=== PATIENT | male | born 1955 | race Caucasian/White ===

== ENCOUNTER 2023-08-18 04:59 | Inpatient (IN) | payer MEDICARE, SELFPAY ==
[2023-08-14 10:59] VITALS: BMI 28.2
[2023-08-14 11:48] LABS: Urine Albumin Negative (Neg - Trace); Urine Bilirubin Negative (Negative); Urine Character Clear (Clear); Urine Color Yellow; Urine Glucose Negative (Negative); Urine Ketone Negative (Negative); Urine Leukocyte Negative (Negative); Urine Nitrite Negative (Negative); Urine Occult Blood Negative (Negative); Urine Urobilinogen Negative (Neg - 1+)
[2023-08-14 11:51] LABS: % Basophils 0.6 % (0-2); % Eosinophils 7.3 % (0-6); % Immature Granulocytes 0.2 % (0-0.5); % Lymphocytes 38.6 % (20.5-51.1); % Monocytes 10.6 % (1.7-9.3); % Neutrophils 42.7 % (42.2-75.2); Absolute Eosinophils 0.4 10^3/uL (0-0.7); Absolute Monocytes 0.5 10^3/uL (0.1-0.6); Absolute Neutrophils 2.2 10^3/uL (1.4-6.5); Hematocrit 42.3 % (39.0-52.0); Hemoglobin 14.5 g/dL (13.0-18.0); Mean Corp Hgb Conc. 34.3 g/dL (33.0-37.0); Mean Corpuscular Hgb 31.7 pg (27.0-31.0); Mean Corpuscular Volume 92.6 fL (80.0-94.0); Mean Platelet Volume 10.3 fL (7.4-10.4); Nucleated Red Blood Cells % 0 % (-); Platelet Count 182 10^3/uL (130-400); Red Blood Cell Count 4.57 10^6/uL (4.70-6.10); Red Cell Dist. Width 12.1 % (11.5-14.5); White Blood Cell Count 5.1 10^3/uL (4.8-10.8)
[2023-08-14 11:59] LABS: APTT 29.1 Sec (23.4-35.0)
[2023-08-14 12:01] LABS: ALT (SGPT) 33 U/L (0-50); AST (SGOT) 35 U/L (17-59); Albumin 4.1 g/dl (3.5-5.0); Alkaline Phosphatase 37 U/L (38-126); Blood Urea Nitrogen 21 mg/dl (9-20); Calcium 9.7 mg/dl (8.4-10.2); Carbon Dioxide 26 mmol/L (22-30); Chloride 103 mmol/L (98-107); Direct Bilirubin 0.3 mg/dl (0.0-0.4); Estimated Creatinine Clearance 80 ml/min; Glucose 93 mg/dl (70-99); Potassium 4.4 mmol/L (3.5-5.1); Sodium 137 mmol/L (135-145); Total Bilirubin 0.5 mg/dl (0.2-1.3); Total Protein 6.7 g/dl (6.3-8.2); eGFR > 60.00
--- NOTE | 2023-08-14 13:38 | CM ---
Chart reviewed. Patient is independent of ADLS, lives with his in a 2 STH, 1 YE, 0 DME. Reviewed preoperative and postoperative instructions and restrictions, along with showering guidelines. Gave patient 2 soaps. Patient is agreeable to a
home visit by CT Transitional RN. Plan is for the patient to return home with CT Transitional RN. CM to follow
[2023-08-18] VITALS (17 sets, daily range): BP systolic 65–141; BP diastolic 53–92; BMI 25.8
[2023-08-18] MEDS: LOPRESSOR 25 MG PO (05:20)
[2023-08-18] MEDS: PROTONIX 40 MG PO (05:20)
[2023-08-18] MEDS: BACTROBAN 2% OINTMENT 1 APPLIC NASAL ×2 (05:20→19:41)
[2023-08-18] MEDS: MAGNESIUM OXIDE 500 MG PO (05:20)
--- NOTE | 2023-08-18 05:30 | PTCARENOTE ---
admitted pt into CVICU rm [id number]. pt clipped and prepped for CVOR. washed w/ CHG. pre-op meds given. pre-op education. all questions answered. commissioned defence force officer to CVOR.
--- NOTE | 2023-08-18 06:14 | W.CVOR.SURPR ---
CVOR Surgeon Immed Pre Op
-
I have examined this patient prior to performance of the scheduled procedure.
The patient's condition is unchanged from the time of the dictated/written History and
Physical and the patient is able to undergo the scheduled procedure.
CABG x 4, possible BIMA plus radial
[2023-08-18 07:07] LABS: ACT+ - POC 82 Seconds (82-134)
[2023-08-18 07:12] LABS: B.E. - POC -0.6 mmol/L; Glucose - POC 98 mg/dl (65-99); HCO3 - POC 26 mmol/L (21-29); Hematocrit - POC 41 % PCV (42-52); Hemodilution- POC Yes; Ionized Calcium - POC 1.25 mmol/L (1.12-1.27); PCO2 - POC 50 mmHg (35-45); PO2 - POC 413 mmHg (80-100); Potassium - POC 3.8 mmol/L (3.6-5.0); Sodium - POC 143 mmol/L (135-145); pH - POC 7.33 (7.35-7.45)
[2023-08-18 07:30] LABS: Urine Albumin Negative (Neg - Trace); Urine Bilirubin Negative (Negative); Urine Character Clear (Clear); Urine Color Yellow; Urine Glucose Negative (Negative); Urine Ketone Negative (Negative); Urine Leukocyte Trace (Negative); Urine Nitrite Negative (Negative); Urine Occult Blood 4+ (Negative); Urine Urobilinogen Negative (Neg - 1+)
[2023-08-18 08:21] LABS: Urine Mucus Few
[2023-08-18 08:23] LABS: Urine Amorphous Seen; Urine Squamous Cell 16-20 /LPF (Few)
[2023-08-18 08:25] LABS: Urine White Cell 0-2 /HPF (0-5)
[2023-08-18 08:27] LABS: Urine Red Blood Cell 16-20 /HPF (0-2)
[2023-08-18 09:34] LABS: B.E. - POC 1.5 mmol/L; Glucose - POC 109 mg/dl (65-99); HCO3 - POC 26 mmol/L (21-29); Hematocrit - POC 34 % PCV (42-52); Hemodilution- POC Yes; Hemoglobin Calculated - POC 11.5; Ionized Calcium - POC 0.98 mmol/L (1.12-1.27); O2 Saturation %Calculated-POC 99.8 5 (92-96); PCO2 - POC 42 mmHg (35-45); PO2 - POC 248 mmHg (80-100); Potassium - POC 5.1 mmol/L (3.6-5.0); Sodium - POC 137 mmol/L (135-145); pH - POC 7.41 (7.35-7.45)
[2023-08-18 10:05] LABS: Glucose - POC 139 mg/dl (65-99); HCO3 - POC 25 mmol/L (21-29); Hematocrit - POC 33 % PCV (42-52); Hemodilution- POC Yes; Hemoglobin Calculated - POC 11.2; Ionized Calcium - POC 1.03 mmol/L (1.12-1.27); O2 Saturation %Calculated-POC 99.9 5 (92-96); PCO2 - POC 35 mmHg (35-45); PO2 - POC 246 mmHg (80-100); Sodium - POC 137 mmol/L (135-145); pH - POC 7.46 (7.35-7.45)
[2023-08-18 10:33] LABS: B.E. - POC -0.1 mmol/L; Glucose - POC 154 mg/dl (65-99); HCO3 - POC 24 mmol/L (21-29); Hematocrit - POC 35 % PCV (42-52); Hemodilution- POC Yes; Hemoglobin Calculated - POC 11.8; Ionized Calcium - POC 1.04 mmol/L (1.12-1.27); PCO2 - POC 37 mmHg (35-45); PO2 - POC 407 mmHg (80-100); Sodium - POC 138 mmol/L (135-145); pH - POC 7.42 (7.35-7.45)
[2023-08-18 10:44] LABS: ACT+ - POC 964 Seconds (82-134)
[2023-08-18 10:59] LABS: ACT+ - POC > 1003 Seconds (82-134)
[2023-08-18 10:59] LABS: ACT+ - POC > 1003 Seconds (82-134)
[2023-08-18 10:59] LABS: ACT+ - POC > 1003 Seconds (82-134)
[2023-08-18 11:07] LABS: ACT+ - POC 96 Seconds (82-134)
[2023-08-18 11:10] LABS: B.E. - POC -2.4 mmol/L; Glucose - POC 123 mg/dl (65-99); HCO3 - POC 23 mmol/L (21-29); Hematocrit - POC 34 % PCV (42-52); Hemodilution- POC Yes; Hemoglobin Calculated - POC 11.6; Ionized Calcium - POC 1.36 mmol/L (1.12-1.27); O2 Saturation %Calculated-POC 99.2 5 (92-96); PCO2 - POC 40 mmHg (35-45); PO2 - POC 149 mmHg (80-100); Sodium - POC 141 mmol/L (135-145); pH - POC 7.36 (7.35-7.45)
--- NOTE | 2023-08-18 11:54 | W.PN.CT.SURG ---
CT Surgery Operative Note
-
CARDIAC SURGERY OPERATIVE REPORT
Preoperative Diagnosis: Multivessel Coronary Artery Disease with proximal LAD involvement, symptomatic
Postoperative Diagnosis: Same
Procedure(s) Performed:
1. Standard sternotomy with aortic and right atrial cannulation
2. Radial artery harvest, open
3. Coronary artery bypass grafting x 4 (In situ GARCIA to LAD, Ao to radial to OM1 sequential to OM 2, Ao to RSVG to RPDA)
4. Endoscopic vein harvesting of right lower extremity
5. Transesophageal echocardiography
Date of Surgery: 08/18/2023
Comorbidities:
1. History of previous myocardial infarction
2. Multivessel CAD
3. Obstructive sleep apnea
4. History of prostate cancer status post multiple surgeries
5. Hypercholesteremia
6. Hypertension
7. Depression
Attending Surgeon: Randal Dalal MD, MS
Assistants: Gina Mendez PA-C (present and necessary to engineer first assistant, endoscopic vein harvest, retraction, suction, exposure, suture management, and wound closure under my direction), Terrie Sanchez PA-C (Radial artery harvest in an open fashion and
wound closure)
Anesthesiology: Moy Iglesias MD and Shahriar Mccain CRNA
Scrub and Circulating RNs: Kaelyn Dailey RN, Francine Alamo RN
Engineer: Nelly Rojas CCP
Anesthesia: GETA
EBL: per perfusion records
Products: None
CPB Time: 98 minutes
Aortic Cross Clamp Time: 82 minutes
Indication(s) for Procedures: This is a 67-year-old male with multivessel coronary disease who had progressive coronary artery stenosis on his repeat cath. He is also symptomatic in the form of shortness of breath and pressure with exertion. We
discussed the risk and benefits of coronary artery revascularization, he excepted those risk and so we proceeded. Given his young age and lesion pattern, we opted to use multi arterial grafting.
Conduit(s) Quality:
GARCIA -excellent/uniform, good quality and length
RSVG -excellent/uniform with minimal amount of varicosities
Radial�excellent, not thickened, uniform in size, no dissection
Target(s) Quality:
PDA - Good/ heavily calcified at the Crux, good flow
OM1/2 - Good / Good quality and sized vessels, fit a 1.5mm probe easily, good flow
LAD - Average / Heavily calcified with multiple lesions, able to find a soft spot with soft plaque distally
Findings: His left ventricular ejection fraction preoperatively was 60% with no regional wall motion abnormalities. He had a mild amount of aortic valve insufficiency and a mild amount of central mitral insufficiency. Following surgery his EF
remained the same at 60 to 65%, little bit hyperdynamic, but with no new regional wall motion abnormalities. His aortic valve and mitral valve remained the same. The radial artery was harvested in an open fashion and found to have a good sized
lumen, minimal amount of thickness, and no dissection. The GARCIA was harvested in a skeletonized fashion and found to have excellent flow. Following bypass grafting, test dose cardioplegia was given down each distal and confirmed patency and
hemostasis. Each distal was probed both proximally and distally to confirm disease and patency, respectively. Flow probe assessment of all grafts were performed at the end of the procedure, all graft demonstrated good to excellent mean flow and
pulsatility index. He did not require any products, his function was excellent coming off of cardiopulmonary bypass, and did not require any inotropic support. He was placed on a low-dose nitro drip for prophylaxis against radial artery spasm.
Description of Procedure: The patient was taken to the operating room. Their identity and procedure to be performed were verified and they were positioned supine on the operating table. Induction via general anesthesia with endotracheal intubation
was performed and central venous access and arterial monitoring were inserted. A preoperative transesophageal echocardiogram was performed to assess cardiac function and valvular function. The patient was then prepped and draped from chin to feet in
a sterile fashion. A preoperative time-out was performed with all members of the team present. A midline chest incision was performed along with median sternotomy. Simultaneous endoscopic access of the right lower extremity for saphenous vein and
left radial artery harvest was obtained along with administration of an initial 5,000 units of IV heparin. A RulTract sternal retractor was positioned to exposure the left internal mammary bed. The mammary was harvested and found to have good flow.
A medium clip was applied to the distal end of the mammary after dividing it. It was wrapped in a papaverine soaked RayTec and replaced back into the left hemithorax. The RulTract was exchanged for a median sternal retractor. The innominate vein was
isolated. Full heparinization was given (a total of 50,000 units). We created a pericardial well. The aortic cannulation site was chosen where it was soft, pliable, and free of calcium. Prior to cannulation, the left arm is intact and the area was
prepped again in a sterile fashion. Cannulation was performed with an arterial cannula in the ascending aorta and a triple-stage venous cannula through the right atrial appendage. The arterial cannula line had an appropriate bounce and correlating
pressures with test dosing. Next, a root vent/antegrade cannula was inserted into the ascending aorta. The ACT was confirmed to be over 400 and retrograde autologous priming was performed before commencing cardiopulmonary bypass. The pulmonary
artery was away from the aorta to facilitate a clamp site. The aortic cross-clamp was placed after decreasing the flow on the bypass and mean arterial pressure. A total of 1.2L initial dose of antegrade Del-Nido cardioplegia solution was
given and planned for re-dosing every 75 minutes as necessary. There was rapid electro-mechanical arrest of the heart at 300 cc of cardioplegia. The left ventricle was observed for distention on echocardiogram and manual palpation. Cold slush was
placed into a sponge and topically on the RV while we systemically cooled to 34 degrees centigrade.
I positioned the heart to expose the distal right coronary at the posterior descending artery. A [place] blade was used to expose the coronary and perform the arteriotomy. Coronary Reagan scissors were used to enlarge the incision. The saphenous vein
was trimmed and beveled to an appropriate size. The distal anastomosis was performed using 7-0 prolene in an end-to-side fashion. Antegrade cardioplegia was administered into the graft. Appropriate hemostasis and flow were confirmed. The graft was
measured for length to the aorta and cut. A suitable site on the second obtuse marginal was chosen. We dissected and prepared the distal target in a similar fashion. An end-to-side anastomosis was created with a 7-0 prolene to the radial artery.
Antegrade cardioplegia was administered into the graft using an Angiocath. Appropriate hemostasis and flow were confirmed. I then aligned of the graft in order to accommodate a sequential [id number] anastomosis to OM1. This was performed with
8-0 Prolene in a running fashion, test dosing with antegrade with Angiocath with distal occlusion of the radial demonstrated excellent unobstructed flow to the target. The graft was measured for length to the aorta. A suitable target on the distal
left anterior descending was identified. We dissected and prepared the distal target in a similar fashion and found the LAD to be extremely calcified with soft plaque throughout the course of the vessel. We retrieved the GARCIA from the chest and
created a pericardial opening while being cognizant of the phrenic nerve to facilitate the course of the mammary. The distal end of the mammary was prepped and beveled to size. We verified orientation and length of the JERRICA and found brisk flow. An
end-to-side anastomosis was created with a 7-0 prolene. We temporarily released the bulldog clamp on the mammary to inspect flow. Perfusion to the LAD territory was visualized and hemostasis was confirmed. The bull clamp was replaced on the mammary.
The heart was filled and the root was distended with antegrade cardioplegia to make final assessment of graft length and orientation. We created to aortotomies using a #11 blade then a 4.0mm aortic punch. The proximal anastomoses were created in an
end-to-side fashion using 7-0 Prolene for the radial and 6-0 prolene for the vein. At the the same time, we re-warmed to 36.5 degrees centigrade. The bulldog clamp was removed from the mammary. Temporary bipolar ventricular pacing wires were placed
on the base of the right ventricle. The patient was placed in a Trendelenburg position and flows on bypass were lowered. The aortic cross clamp was removed and flows were slowly brought back up. A 30-gauge needle was used to de-air the vein graft.
All bypass grafts were inspected and were free from kinking or twisting. The distal and proximal anastomoses appeared hemostatic. Once transesophageal echocardiography appeared satisfactory for de-airing, the flows were temporarily lowered for root
vent removal. After verifying acceptable parameters, we initiated weaning from cardiopulmonary bypass. Once we were off cardiopulmonary bypass, the venous cannula was clamped and removed. A test dose of protamine was administered and the patient was
monitored for any adverse reaction before resuming protamine. Once half of the protamine dose was delivered, pump suckers were turned off and the systolic blood pressure was lowered for aortic decannulation. The aortic cannula was removed and
pursestrings were tied down. All cannulation sites were oversewn with a 4-0 prolene. I noticed that there was some oozing from the subxiphoid area where the pacing wire had been placed through the skin on the underside. This was clipped with large
clips and then packed with hemostatic agent with good effect. The mammary bed was inspected and hemostasis was confirmed. Once the mediastinum was hemostatic, 19Fr Sean drain was placed in the left pleural cavity and two 24Fr Sean drains were
placed within the pericardium. The sternum was approximated with 4 #7 single and 3 #8 double stainless steel wires. Fascia was approximated with #1 vicryl suture. The subcutaneous, dermis and epidermis were closed in layers in a running fashion. The
skin wound was cleansed and dressed.
All instrument, sponge, and needle counts were confirmed to be correct x 2 at the end of the operation. The patient was transferred to the cardiac intensive care unit in critical but stable condition.
I, Dr. Randal Dalal, was present, scrubbed for, and performed all critical elements of this procedure.
Randal Dalal MD, MS
Cardiothoracic Surgeon
[facility]
This operative dictation was created using the [employer] dictation system. Please excuse any grammatical, typographical, or 'sound alike' errors
--- NOTE | 2023-08-18 12:01 | CM ---
Chart reviewed. Patient is in the OR today. Patient is independent of ADLS, lives with his in a 2 STH, 1 YE, 0 DME. Plan is for the patient to return home with CT Transitional RN. CM to follow
[2023-08-18 12:33] LABS: Glucose - Point of Care 117 mg/dl (70-99)
[2023-08-18 12:40] LABS: Hematocrit 30.6 % (39.0-52.0); Hemoglobin 10.4 g/dL (13.0-18.0); Platelet Count 113 10^3/uL (130-400)
--- NOTE | 2023-08-18 12:40 | PTCARENOTE ---
Assumed care of patient from CVOR, Intubated with # 8.0 ETT at 23 cm and on vent SIMV 60% 14 550 5/5. pulse ox 99%. RT IJ cordis with slick. RT radial A line transducing. Lines leveled, recalibrated and flushed. BP labile with Levophed infusing
along with Nitro drip. 250 5% albumin administered. BP responded well. Epicardial V wire attached to pacer box but off. Abdomen soft and non tender. Chest tubes x 3 to -20 cm suciton. No air leaks or crepitus noted. Lt radial harvest incision
with Kulwinder wrap and surgical glue intact. Ulnar pulse palpable. Sternal incision well approximated with glue also. Rt groin puncture site intact. RT SVG incision glued with Kulwinder wrap intact. No edema appreciated, pulses palpable. Will wean
precedex as tolerated and wake to extubate
[2023-08-18 12:41] LABS: B.E. -1.2 mmol/L; HCO3 24.3 mmol/L (21-28); Ionized Calcium 1.17 mMOL/L (1.15-1.33); PCO2 43 mmHg (35-48); PO2 193 mmHg (83-108); Sodium 137 mMOL/L (136-145); pH 7.36 (7.35-7.45)
[2023-08-18 12:50] LABS: INR 1.57; PT 18.6 Sec (11.4-14.6)
[2023-08-18 12:51] LABS: APTT 30.1 Sec (23.4-35.0)
[2023-08-18] MEDS: ALBUMIN 5% 250 IV ×2 (12:54→19:41)
[2023-08-18] MEDS: NSS 500 IV (12:57)
[2023-08-18 12:58] LABS: Blood Urea Nitrogen 20 mg/dl (9-20); Estimated Creatinine Clearance 85 ml/min; Glucose 115 mg/dl (70-99); Magnesium 2.6 mg/dl (1.6-2.3)
[2023-08-18] MEDS: NEURONTIN PO ×2 (12:58→15:20)
[2023-08-18] MEDS: ANCEF 10 IV ×2 (12:58)
[2023-08-18 13:09] LABS: Glucose - Point of Care 112 mg/dl (70-99)
--- NOTE | 2023-08-18 13:15 | CON.CAR ---
Addendum entered and electronically signed by Paradise King DO 08/18/23 15:38:
I saw and examined the patient.
The General Car Yard Supervisor's note was reviewed and I agree with the note.
Comment: Mello is 67 yo M with PMH CAD with prior IL, JESSE, prostate cancer s/p prior surgery, HTN, HLD, depression who was found by cath 07/24/23 to have significant progression of multivessel CAD including significant proximal LAD disease, subtotal
occlusion of diagonal system, 2 large OM vessels with ostial stenosis of circumflex and OM1, near occlusion of RCA at AV groove proximal to takeoff of RPDA. He also reported chest discomfort and SOB. ECHO 07/31 with preserved EF, normal valves,
trace MR. He was referred to CT surgery for CABG evaluation. Status post CABG x 4 on 08/18/2023. Cardiology consulted for assistance with postoperative management. Patiently currently intubated/sedated so history obtained from medical record.
GEN: Intubated and weaning sedation. Awake to voice.
HEENT: Normocephalic, Anicteric and Moist Mucous Membranes
Respiratory: Clear and Non Labored Respirations
Cardiac: S1/S2 and Regular Rhythm. No murmurs or rubs. positive chest tube
GI: Soft, Non Tender, Non Distended and Normal Bowel Sounds
Musculoskeletal: No edema
Skin:Sternotomy site c/d/i. nat wrap to L wrist and RLE
Neuro: Sedated
Plan:
-Status post CABG x 4 In situ GARCIA to LAD, Ao to radial to OM1 sequential to OM 2, Ao to RSVG to RPDA 08/18/23
-patient intubated, sedated
-continue post op care
-on levo@4, insulin @2.3. wean as able.
-Did not tolerate nitroglycerin drip secondary to hypotension; now discontinued
-EKG SR with 1st degree av block
-hgb 10.4, plts 113K. follow
-prior to admission was on asa, lipitor 80mg QPM, toprol 25mg HS, xarelto 2.5mg BID (suspected for CAD, will discuss indication with patient once extubated)
-d/w CT surgery, nursing
Original Note:
Consultation
Consultation Request
Date/Time Consultation Performed: 08/18/23
Requesting Provider: Dr. Dalal
Performing Provider: Zenaida Leigh PA-C for Dr. King
Reason for Consultation: post CABG
Medical History
-
Chief Complaint: CABG
History of Present Illness:
Patient is a 67 yo M with PMH CAD with prior IL, JESSE, prostate cancer s/p prior surgery, HTN, HLD, depression who was found by cath 07/24/23 to have significant progression of multivessel CAD including significant proximal LAD disease, subtotal
occlusion of diagonal system, 2 large OM vessels with ostial stenosis of circumflex and OM1, near occlusion of RCA at AV groove proximal to takeoff of RPDA. He also reported chest discomfort and SOB. ECHO 07/31 with preserved EF, normal valves,
trace MR. He was referred to CT surgery for CABG evaluation. Status post CABG x 4 on 08/18/2023. Cardiology consulted for assistance with postoperative management. Patiently currently intubated/sedated so history obtained from medical record.
PMH:
CAD with prior IL with ARLETH to RCA and LCx 2017, recent progression of multivessel CAD by cath 07/24/2023
HTN
HLD
Prostate cancer s/p prostatectomy 2012
JESSE on CPAP
depression
Past Medical History
Past Medical History: Other (in HPI)
Social History
Tobacco: Non-Smoker
Personal:
Living: With Family
Employment: Retired
Family History
Family History: CAD (Father)
Allergies / Home Medications
Allergy/AdvReac Type Severity Reaction Status Date / Time
No Known Allergies Allergy Unverified 08/09/23 10:34
�Medication �Instructions �Recorded �Confirmed �Type
aspirin 81 mg tablet,delayed 81 mg PO DAILY 08/09/23 08/18/23 History
release
atorvastatin 80 mg tablet 80 mg PO HS 08/09/23 08/18/23 History
escitalopram oxalate 10 mg tablet 10 mg PO HS 08/09/23 08/18/23 History
(Lexapro)
metoprolol succinate 25 mg 25 mg PO HS 08/09/23 08/18/23 History
tablet,extended release 24 hr
montelukast 10 mg tablet 10 mg PO HS 08/09/23 08/18/23 History
(Singulair)
nitroglycerin 0.4 mg sublingual 0.4 mg sublingual Q5-15M PRN chest 08/09/23 08/18/23 History
tablet pain
rivaroxaban 2.5 mg tablet (Xarelto) 2.5 mg PO BID 08/09/23 08/18/23 History
Review of Systems
-
Unable to obtain full review of systems at this time due to: Patient Intubation
Physical Exam
Vital Signs
Temp Pulse Resp BP Pulse Ox
97.7 F 80 14 119/66 99
08/18/23 13:00 08/18/23 13:00 08/18/23 13:00 08/18/23 12:32 08/18/23 13:00
Lab Results
08/18/23 12:30
Physical Exam
General: No Apparent Distress and Intubated
HEENT: Normocephalic, Anicteric and Moist Mucous Membranes
Respiratory: Clear and Non Labored Respirations
Cardiac: S1/S2 and Regular Rhythm
GI: Soft, Non Tender, Non Distended and Normal Bowel Sounds
Musculoskeletal: No Clubbing, No Cyanosis and No Edema
Skin: Warm, Dry and Other (Sternotomy site c/d/i. nat wrap to L wrist and RLE)
Neuro: Sedated
Impression / Plan
-
Primary Desk Lieutenant: Dr. Beltran Aldrich
Assessment:
Status post CABG x 4 In situ GARCIA to LAD, Ao to radial to OM1 sequential to OM 2, Ao to RSVG to RPDA 08/18/23
CAD with prior IL with ARLETH to RCA and LCx 2017, recent progression of multivessel CAD by cath 07/24/2023
HTN
HLD
Prostate cancer s/p prostatectomy 2012
JESSE on CPAP
depression
ECHO 08/01/23: preserved EF, normal valves, trace MR
Plan:
-Patient of Dr. Aldrich underwent CABG x 4 In situ GARCIA to LAD, Ao to radial to OM1 sequential to OM 2, Ao to RSVG to RPDA 08/18/23
-patient intubated, sedated
-continue post op care
-on levo@4, insulin @2.3. wean as able.
-EKG SR with 1st degree av block
-hgb 10.4, plts 113K. follow
-prior to admission was on asa, lipitor 80mg QPM, toprol 25mg HS, xarelto 2.5mg BID (suspected for CAD, will discuss indication with patient once extubated)
-d/w CT surgery, nursing
Data Reviewed
-
EKG: Tracing Personally Visualized and interpreted
Radiology: Report Reviewed by me
CT Scan: Report Reviewed by me
Medical Tests (Nuc Med, Echo etc): Report Reviewed by me
Labs: Labs Reviewed by me
Old Records: Reviewed
--- NOTE | 2023-08-18 13:26 | CON.INTV ---
Consultation
Consultation Request
Date/Time Consultation Requested: 08/18/2023
Date/Time Consultation Performed: 08/18/2023
Requesting Provider: Dr. Dalal
Performing Provider: Dr. Felix Padilla
Reason for Consultation: Coronary artery bypass
Medical History
-
History of Present Illness:
67-year-old man with known multivessel coronary artery disease. Evaluated in the outpatient for progressive disease. He was deemed candidate for revascularization. Coronary artery bypass underwent on 08/18/[address] Dalal.
Patient currently in the critical care unit intubated, on mechanical ventilation. Unable to provide history.
Chest tube is in place without significant air leak or excessive drainage.
Records reviewed.
Past Medical History
Past Medical History: Other (See assessment and plan section)
Social History
Tobacco: Other (Never smoker)
Alcohol: Occasional
Personal:
Living: With Family
Employment: Retired (accounting manager cpa)
Family History
Family History: Unable to Obtain
Allergies / Home Medications
Allergies
Allergy/AdvReac Type Severity Reaction Status Date / Time
No Known Allergies Allergy Unverified 08/09/23 10:34
Home Medications
�Medication �Instructions �Recorded �Confirmed �Last Taken �Type
aspirin 81 mg tablet,delayed 81 mg PO DAILY 08/09/23 08/18/23 08/14/23 History
release
atorvastatin 80 mg tablet 80 mg PO HS 08/09/23 08/18/23 08/16/23 20:00 History
escitalopram oxalate 10 mg tablet 10 mg PO HS 08/09/23 08/18/23 08/16/23 20:00 History
(Lexapro)
metoprolol succinate 25 mg 25 mg PO HS 08/09/23 08/18/23 08/16/23 20:00 History
tablet,extended release 24 hr
montelukast 10 mg tablet 10 mg PO HS 08/09/23 08/18/23 08/16/23 20:00 History
(Singulair)
nitroglycerin 0.4 mg sublingual 0.4 mg sublingual Q5-15M PRN chest 08/09/23 08/18/23 07/14/23 History
tablet pain
rivaroxaban 2.5 mg tablet (Xarelto) 2.5 mg PO BID 08/09/23 08/18/23 08/14/23 History
Review of Systems
Vitals / Labs / Diagnostic Testing
Vital Signs
Temp Pulse Resp BP Pulse Ox
97.7 F 80 14 119/66 98
08/18/23 13:00 08/18/23 13:00 08/18/23 13:00 08/18/23 12:32 08/18/23 13:16
Lab Data
08/18/23 12:30
Laboratory Results
08/18/23
12:30
PT 18.6 H
INR 1.57
APTT 30.1
pH 7.36
pCO2 43
pO2 193 H
HCO3 24.3
O2 Delivery Level
Microbiology
08/14/23 11:09 Nose MRSA Screen - Final
No Methicillin Resistant Staphylococcus aureus isolated.
Diagnostic Testing:
Physical Exam
-
HEENT: Normocephalic and Other (ET tube in place)
Cardiovascular: S1/S2
Respiratory: Clear, Non-Labored Respirations and Other (Chest tube in place without air leak or excessive drainage)
GI: Soft and Non Distended
Neurology: Other (Sedated, on mechanical ventilation.)
Skin: Warm
General: Respiratory Distress (n)
Assessment
-
Status post coronary artery bypass 08/18/2023-Dr. Dalal
Postoperative mechanical ventilation
Postoperative anemia
Conditions present prior admission:
Coronary artery disease
Prior myocardial infarction
Obstructive sleep apnea
Hypercholesterolemia
History of prostate cancer
Depression
Status post prostatectomy 2012
Plan and recommendations:
He is doing well postop-currently on mechanical ventilation and appears comfortable.
ABG reviewed: Adequate oxygenation and ventilation.
Continue SIMV mode with no change
Spontaneous breathing trial per protocol once sedation wears off.
Anemia noted-no evidence of acute bleeding
Follow H&H serially
Hemodynamics -acceptable, only on low-dose Levophed, wean off as able
Urinary output is adequate
Follow renal function
Chest tube with no excessive drainage-no air leak.
Chest x-ray reviewed: With no pneumothorax or fluid collections.
Remain nothing by mouth
Head of the bed elevation
Glycemic control per protocol
DVT prophylaxis when safe from the surgical perspective.
Critical care statement: A total of 31 minutes of critical care time was provided for this patient today. This includes management of unstable vital signs, evaluation of the patient at bedside, reviewing the patient's pertinent medical records
including ventilator settings, arterial blood gases, radiographs, microbiology, laboratory evaluations and discussion with primary team, critical care nursing, and respiratory therapy.
[2023-08-18] MEDS: CALCIUM CHLORIDE 10% SYRINGE 50 ML IV (13:39)
[2023-08-18] MEDS: CALCIUM CHLORIDE 10% SYRINGE 50 MG IV (13:39)
[2023-08-18] MEDS: VERSED 0.5 MG IV (13:39)
--- NOTE | 2023-08-18 13:40 | PTCARENOTE ---
BP labile, especialliy with waking up. 250 ml LR administered per MD.
[2023-08-18] MEDS: TYLENOL PO (13:48)
[2023-08-18 13:55] LABS: Glucose - Point of Care 121 mg/dl (70-99)
--- NOTE | 2023-08-18 14:15 | W.PN.UPDATE ---
Addendum entered and electronically signed by Obi Berman MD 08/19/23 09:15:
I saw and examined the patient.
The PA's note was reviewed and I agree with the note.
Comment:
POD#1 s/p CABG x 4
No major overnight events. Levophed weaned OFF. HD stable. Sinus. 2L. GTTS: none. CT: 2M: 145/355, 1P: 20/130 (D/C'd this AM). UO: 1225.
- De-line
- D/C pleural CT (done)
- ASA/plavix, BB, amio, lipitor
- Hold on diuresis today
- Maintain nayak until more ambulatory
- OOB/IS/ambulate later
Original Note:
Update Note
Progress Note Update
67 year old male electively admitted 08/17/23 for CABG
IV fluids: 1550
U.O.:� 500
Blood:� none
Wires:� V-wires
Inotropes:� none
Pressors:� Levophed
Sedatives:� Precedex
�
NEURO: sedated on Precedex, pupils +2mm B/L
RESP: #8OT @22cm> 500/60%/14/5. Lungs clear B/L. 2 mediastinal (50cc on arrival) and L pleural (10cc on arrival) chest tubes to -20cm suction. Sanguineous drainage
CV: RRR +S1, S2, no S3, no�rub, no murmur. Dermabond to median sternotomy. RIJ w/slick intact
ABD: round, soft, no BS
EXT: no edema, +2/4 DP pulses B/L, no femoral bruit, RLE SAVANNAH wrap intact; left radial A-line intact
: Nayak with clear yellow urine
�
A/P: POD #0 s/p CABG x 4 GARCIA-LAD, radial OM1 & OM2, SVG-RPDA
JAYCE: EF�60%, mild MR (unchanged from pre-op)
- wean and extubate
# CAD
- will require ASA/Plavix, high intensity statin, beta-michael
# JESSE
- will need nocturnal CPAP
�
# acute surgical blood loss anemia-expected
- Hb 10.4
- trend CBC
�
# Pre-diabetes (A1C 6.0)
- insulin infusion x 24h, then transition to SSI
�
# Depression
- resume�Lexapro 08/18
[2023-08-18] MEDS: DILAUDID 0.5 MG IV ×2 (14:21→21:47)
[2023-08-18 14:57] LABS: Glucose - Point of Care 109 mg/dl (70-99)
--- NOTE | 2023-08-18 15:07 | PTCARENOTE ---
CPAP trial initiated at 1500. Pt able to sustain periods of wakefulness. Moves extremities to command. Will obtain ABG per protocol
[2023-08-18] MEDS: PACERONE PO (15:20)
--- NOTE | 2023-08-18 15:33 | PTCARENOTE ---
Nitro drip restarted at 5mcg/min, Pt blood pressure did not tolerate and SBP dropped to 70's. 250 ml LR bolus administered and Levo titrated as needed. Nitro drip discontinued.
[2023-08-18 15:47] LABS: Glucose - Point of Care 114 mg/dl (70-99)
[2023-08-18 15:49] LABS: Hemoglobin 10.7 g/dL (13.0-18.0); Platelet Count 131 10^3/uL (130-400)
[2023-08-18] MEDS: OFIRMEV 100 IV (16:17)
[2023-08-18] MEDS: LR 500 IV (16:17)
[2023-08-18 16:45] LABS: B.E. -0.7 mmol/L; HCO3 25.4 mmol/L (21-28); Ionized Calcium 1.42 mMOL/L (1.15-1.33); O2 Saturation % 99.9 % (94-98); PCO2 47 mmHg (35-48); PO2 178 mmHg (83-108); Potassium 4.5 mMOL/L (3.5-5.1); Sodium 139 mMOL/L (136-145); pH 7.34 (7.35-7.45)
[2023-08-18 17:01] LABS: Glucose - Point of Care 107 mg/dl (70-99)
--- NOTE | 2023-08-18 17:02 | PTCARENOTE ---
Extubated to 6 L NC at 1700. Pt vss tolerated. Pulse ox 99%
[2023-08-18] MEDS: NORVASC 2.5 MG PO (17:36)
[2023-08-18] MEDS: LOW STRENGTH ASPIRIN 81 MG PO (17:37)
[2023-08-18 18:03] LABS: Glucose - Point of Care 101 mg/dl (70-99)
[2023-08-18] MEDS: ROXICODONE 5 MG PO (19:28)
[2023-08-18 19:49] LABS: Glucose - Point of Care 123 mg/dl (70-99)
--- NOTE | 2023-08-18 20:00 | PTCARENOTE ---
Received pt from dayshift; pt resting in bed, states pain is 5/10, see MAR for pain management; NSR on monitor, VSS; heart sounds audible, right radial and left ulnar pulse palpable, DP pulse palpable, no edema noted, temp epicardial V-wires
present, pacer box turned off; lungs CTA, diminished and b/l bases, spo2 98, O2 turned down from 4 to 2 LPM, x2 mediastinal CT and left pleural CT to -20 wall suction, no air leaks, no tidaling, no crepitus; hypoactive BS x4 quadrants, abdomen soft
non tender; pt voiding clear yellow urine via nayak catheter; surgical sites and dressings maintained ; right IJ cordis, slick, right radial A-line, PIV all maintained, leveled and zeroed; levophed and insulin gtts infusing, 250ml albumin ordered
and infused; call cosby within reach; will continue to monitor.
[2023-08-18] MEDS: SENOKOT-S PO (20:13)
[2023-08-18] MEDS: LEVOPHED 250 IV (21:43)
[2023-08-18] MEDS: TYLENOL 1000 MG PO (21:47)
[2023-08-18] MEDS: NEURONTIN 100 MG PO (21:48)
[2023-08-18] MEDS: LIPITOR 80 MG PO (21:48)
[2023-08-18 22:05] LABS: Glucose - Point of Care 102 mg/dl (70-99)
[2023-08-19] VITALS (25 sets, daily range): BP systolic 94–121; BP diastolic 59–92; PULSE 80; O2SAT 94–95; BMI 26.3
--- NOTE | 2023-08-19 | PTCARENOTE ---
Pt assessment unchanged; NSR on monitor, VSS; pt resting comfortably in bed; on going pain management with medication and repositioning; pt has tolerated the tapering of Levophed gtt throughout the night; Levophed is currently at 3mcg/min; call cosby
within reach; will continue to monitor.
[2023-08-19 00:08] LABS: Glucose - Point of Care 110 mg/dl (70-99)
[2023-08-19] MEDS: ROXICODONE 5 MG PO ×4 (01:05→20:39)
[2023-08-19 02:09] LABS: Glucose - Point of Care 97 mg/dl (70-99)
[2023-08-19 03:52] LABS: Glucose - Point of Care 104 mg/dl (70-99)
[2023-08-19 03:58] LABS: Hematocrit 28.9 % (39.0-52.0); Hemoglobin 10.1 g/dL (13.0-18.0); Mean Corp Hgb Conc. 34.9 g/dL (33.0-37.0); Mean Corpuscular Hgb 32.6 pg (27.0-31.0); Mean Corpuscular Volume 93.2 fL (80.0-94.0); Mean Platelet Volume 10.3 fL (7.4-10.4); Platelet Count 118 10^3/uL (130-400); Red Cell Dist. Width 12.4 % (11.5-14.5); White Blood Cell Count 10.2 10^3/uL (4.8-10.8)
--- NOTE | 2023-08-19 04:00 | PTCARENOTE ---
Pt assessment unchanged; NSR on monitor, VSS; Levophed has been turned off, pt tolerating it well; on going pain management with medication and repositioning; AM labs drawn and sent; EKG obtained; pt washed with CHG wipes, new tele leads place and
new gown; call cosby within reach; will continue to monitor.
[2023-08-19] MEDS: DILAUDID 0.5 MG IV (04:03)
[2023-08-19 05:09] LABS: Blood Urea Nitrogen 24 mg/dl (9-20); Calcium 9.2 mg/dl (8.4-10.2); Carbon Dioxide 23 mmol/L (22-30); Chloride 108 mmol/L (98-107); Estimated Creatinine Clearance 77 ml/min; Glucose 99 mg/dl (70-99); Magnesium 2.2 mg/dl (1.6-2.3); Potassium 4.4 mmol/L (3.5-5.1); Sodium 136 mmol/L (135-145); eGFR > 60.00
[2023-08-19] MEDS: TYLENOL 1000 MG PO ×3 (05:14→20:38)
[2023-08-19] MEDS: FLEXERIL 5 MG PO (05:14)
[2023-08-19 06:04] LABS: Glucose - Point of Care 98 mg/dl (70-99)
[2023-08-19 06:55] LABS: Glucose - Point of Care 105 mg/dl (70-99)
--- NOTE | 2023-08-19 08:00 | PTCARENOTE ---
pt received from previous RN, oriented, OOB in chair. SR on the monitor, HR 80-90s. V wire in place, pacer box off. SBP 90-120s. palpable pulses. pt on 2LNC, 94-97% POX. lungs diminished. IS encouraged, 750-1000ml. CT x3, no air leak or crepitus
noted. pt abdomen s/n, denies n/v. +BS. clear liquids tolerated. Telles in place. sternal incision approximated. chest tube site c/d/i. R groin ROD POINTER, RLE SAVANNAH bandage place. LUE SAVANNAH bandage in place. RIJ cordis maintained. PIV. insulin gtt running as
ordered. see worklist for VS, I&O, and assessment.
[2023-08-19 08:07] LABS: Glucose - Point of Care 104 mg/dl (70-99)
[2023-08-19] MEDS: NEURONTIN 100 MG PO ×3 (08:11→20:38)
[2023-08-19] MEDS: PROTONIX 40 MG PO (08:11)
[2023-08-19] MEDS: PACERONE 200 MG PO ×3 (08:11→20:38)
[2023-08-19] MEDS: LOW STRENGTH ASPIRIN 81 MG PO (08:11)
[2023-08-19] MEDS: PLAVIX 75 MG PO (08:11)
[2023-08-19] MEDS: SENOKOT-S 1 TABLET PO ×2 (08:11→19:16)
[2023-08-19] MEDS: LOPRESSOR 12.5 MG PO ×2 (08:12→19:16)
[2023-08-19] MEDS: TORADOL 15 MG IV ×2 (08:12→17:29)
[2023-08-19] MEDS: BACTROBAN 2% OINTMENT 1 APPLIC NASAL ×2 (08:14→19:16)
[2023-08-19] MEDS: LEXAPRO 10 MG PO (08:42)
[2023-08-19 09:03] LABS: Glucose - Point of Care 127 mg/dl (70-99)
[2023-08-19 10:23] LABS: Glucose - Point of Care 123 mg/dl (70-99)
--- NOTE | 2023-08-19 10:30 | PTCARENOTE ---
pt placed back to bed w/ CR. L pleural CT dc'd as ordered, chest tube dressing c/d/i. pt resting between care.
--- NOTE | 2023-08-19 10:39 | W.PN.CARDCBS ---
Today's Communication / Plan
-
Doing well on postoperative day #1, hemodynamically stable. Continue current management.
Impression / Plan
-
Primary Facilities Manager: Dr. Beltran Aldrich
Assessment:
Status post CABG x 4 In situ GARCIA to LAD, Ao to radial to OM1 sequential to OM 2, Ao to RSVG to RPDA 08/18/23
CAD with prior [place] with ARLETH to RCA and LCx 2017, recent progression of multivessel CAD by cath 07/24/2023
HTN
HLD
Prostate cancer s/p prostatectomy 2012
JESSE on CPAP
depression
ECHO 08/01/23: preserved EF, normal valves, trace MR
Plan:
-Patient of Dr. Aldrich underwent CABG x 4 In situ GARCIA to LAD, Ao to radial to OM1 sequential to OM 2, Ao to RSVG to RPDA 08/18/23
He has been extubated. He is doing quite well, hemodynamically stable.
Continue post op care
-prior to admission was on asa, lipitor 80mg QPM, toprol 25mg HS, xarelto 2.5mg BID (reviewed with patient, he tells me he was placed on Xarelto fpr CAD after poorly tolerating Brilinta)
Progress Note - Facilities Manager
Subjective
Date of Service: August 19, 2023
In bed, smiling, tells me he feels well. No chest pain or shortness of breath.
Objective
Labs:
08/19/23 03:50
08/19/23 03:50
Labs
Hgb 10.1 g/dL (13.0-18.0) L 08/19/23 03:50
Hct 28.9 % (39.0-52.0) L 08/19/23 03:50
Plt Count 118 10^3/uL (130-400) L 08/19/23 03:50
PT 18.6 Sec (11.4-14.6) H 08/18/23 12:30
INR 1.57 08/18/23 12:30
APTT 30.1 Sec (23.4-35.0) 08/18/23 12:30
Sodium 136 mmol/L (135-145) 08/19/23 03:50
Potassium 4.4 mmol/L (3.5-5.1) 08/19/23 03:50
BUN 24 mg/dl (9-20) H 08/19/23 03:50
Creatinine 1.0 mg/dL (0.7-1.3) 08/19/23 03:50
Glucose 99 mg/dl (70-99) 08/19/23 03:50
Vital Signs and I&O:
Vital Signs
Temp Pulse Resp BP Pulse Ox
97.6 F 73 18 94/70 94
08/19/23 08:00 08/19/23 10:00 08/19/23 08:00 08/19/23 10:00 08/19/23 10:16
Vital Signs
Temp Pulse Resp BP Pulse Ox
97.6 F 73 18 94/70 94
08/19/23 08:00 08/19/23 10:00 08/19/23 08:00 08/19/23 10:00 08/19/23 10:16
Intake & Output
08/17/23 08/18/23 08/19/23 08/20/23
06:59 06:59 06:59 06:59
Intake Total 1466.2 / 1466.2 21.7 / 21.7
Output Total 1815 / 1815 60 / 60
Balance -348.8 / -348.8 -38.3 / -38.3
Physical Exam
Physical Exam
Well-appearing, no acute distress.
Midline sternal incision with wound that looks intact.
Heart is regular normal S1 and S2, no S3 no S4 is grade 1/6 apical holosystolic murmur no rubs.
Lungs are clear to auscultation bilaterally without wheezes rales or rhonchi. Chest tubes in place
Abdomen soft nontender nondistended with normoactive bowel sounds
Extremities show no clubbing cyanosis or edema.
[2023-08-19 12:01] LABS: Glucose - Point of Care 94 mg/dl (70-99)
--- NOTE | 2023-08-19 12:22 | PTCARENOTE ---
pt VSS, no changes in assessment. pt OOB to chair w/ 2 person assist. family at bedside visiting. IS encouraged.
[2023-08-19] MEDS: NSS 500 IV (13:31)
[2023-08-19] MEDS: NORVASC 2.5 MG PO (13:31)
[2023-08-19 13:35] LABS: Glucose - Point of Care 95 mg/dl (70-99)
--- NOTE | 2023-08-19 15:34 | W.PN.INTV ---
Today's Communication / Plan
Recommendations
Continue routine postoperative care
Follow chest tube output
Daily x-ray
Daily H&H
Continue with cardiac medications
Incentive spirometry
Increase activity as able
Sign off
Assessment
-
Status post coronary artery bypass 08/18/2023-Dr. Dalal
Postoperative mechanical ventilation
Postoperative anemia
Conditions present prior admission:
Coronary artery disease
Prior myocardial infarction
Obstructive sleep apnea
Hypercholesterolemia
History of prostate cancer
Depression
Status post prostatectomy 2012
Plan and recommendations:
Doing well postoperative day 1
Sitting out of bed
Relatively clear lung exam
Chest tube in place without significant air leak
Encourage incentive spirometry
Increase activity as able
Anemia noted-no evidence of acute bleeding
Follow H&H serially
Hemodynamics -stable. Off vasopressors.
Adequate urinary output and renal function.
Chest tube with no excessive drainage-no air leak.
Chest x-ray reviewed: With no pneumothorax or fluid collections.
Advance diet as able
Head of the bed elevation
Glycemic control per protocol
DVT prophylaxis when safe from the surgical perspective.
Patient has been transferred to telemetry. Critical care team will sign off
Subjective Dataa
Subjective Data
Date of Service:
Date of Service: August 19, 2023
Chief Complaint: Product Development Follow Up
Subjective:
Patient feels better.
Sitting in a chair
Denies any cough or phlegm production.
Pain is controlled
Review of Systems
Cardiopulmonary: Dyspnea (None at rest), Cough (n), Sputum Production (n) and Wheezing (n)
GI: Abdominal Pain (n)
Objective Data
Data Reviewed
Vital Signs / I&O / Oxygen:
Vital Signs
Temp Pulse Resp BP Pulse Ox
97.5 F 82 18 115/68 95
08/19/23 11:18 08/19/23 14:00 08/19/23 11:18 08/19/23 14:00 08/19/23 12:33
Intake and Output
08/18/23 08/19/23 08/20/23
06:59 06:59 06:59
Intake Total 1466.2 / 1466.2 77.7 / 77.7
Output Total 1815 / 1815 200 / 200
Balance -348.8 / -348.8 -122.3 / -122.3
SaO2 [SIMV] 98
SaO2 95
Nasal Cannula flow liters per 2
minute
Physical Exam
General: Respiratory Distress (n) and Comfortable
HEENT: Normocephalic
Cardiovascular: S1-S2
Respiratory: Clear and Other (Chest tube in place without air leak)
GI: Soft and Non Distended
Neurology: Awake
Labs/Micro/Reports
Lab Data
08/19/23 03:50
08/19/23 03:50
Laboratory Results
08/18/23
15:39
pH 7.34 L
pCO2 47
pO2 178 H
HCO3 25.4
O2 Delivery Level
--- NOTE | 2023-08-19 16:30 | SUR.PHASEI ---
pt VSS, OOB in chair. pt attempted to use BSC, no BM, +flatus. RLE SAVANNAH removed. LUE SAVANNAH removed, EMBEDDED SYSTEMS SOFTWARE DEVELOPER aware of small open incisional area.
[2023-08-19 17:29] LABS: Glucose - Point of Care 130 mg/dl (70-99)
[2023-08-19] MEDS: FLOMAX 0.400000000000000022 MG PO (17:29)
[2023-08-19] MEDS: NOVOLOG FLEXPEN-MODERATE RESISTANCE SC (17:30)
--- NOTE | 2023-08-19 19:14 | W.PN.ANS.POP ---
Anesthesia Post Operative
- Anesthesia Post Op Note
Vital Signs Stable-See Nursing Note: Yes
Airway Patent: Yes
Adequate Pain Control: Yes
Change in Mental Status: No
Current Postoperative Nausea & Vomiting: No
Anesthesia Complications: No
General Anesthetic Recall: No
Unplanned Admission: No
Post Op Hydration Adequate: Yes
--- NOTE | 2023-08-19 19:30 | PTCARENOTE ---
assumed care of patient @ 1900. received pt sitting in chair, AOX3. Afebrile, pain 5/10 in sternum, states will take pain medicine before bed. NSR on monitor with occasional PVCs. V wire to box (turned off). + Pedals, + R radial, + L ulnar. trace
edema on L upper extremity. BP 120s/70s, HR 80s-90s. Satting 95 percent on room air. Lungs sound clear, diminished at bases. taking shallow breaths. 2 mediastinal chest tubes present, serosang drainage no air leak, tidaling, or crepitus noted. Telles
present draining clear yellow urine. Sternal aquacel, CT dressings CDI. L radial harvest site with glue and small dressing near top (oozy area)- CDI no drainage noted, very ecchymotic. RLE harvest and R groin puncture site closed with glue MELINDA CDI.
R IJ cordis with kvo patent, R AC 18 locked. Pt resting comfortably with call cosby within reach.
[2023-08-19] MEDS: LIPITOR 80 MG PO (20:38)
[2023-08-20] VITALS (13 sets, daily range): BP systolic 91–147; BP diastolic 64–86; PULSE 80; BMI 26.4
--- NOTE | 2023-08-20 | PTCARENOTE ---
pt resting comfortably, no change in assessment
--- NOTE | 2023-08-20 04:00 | PTCARENOTE ---
lab work drawn and sent, pt resting comfortably, no change in assessment.
[2023-08-20 04:19] LABS: Glucose - Point of Care 125 mg/dl (70-99)
[2023-08-20] MEDS: TORADOL 15 MG IV (04:20)
[2023-08-20 04:28] LABS: Hematocrit 25.4 % (39.0-52.0); Hemoglobin 8.9 g/dL (13.0-18.0); Mean Corpuscular Hgb 32.5 pg (27.0-31.0); Mean Corpuscular Volume 92.7 fL (80.0-94.0); Red Blood Cell Count 2.74 10^6/uL (4.70-6.10); Red Cell Dist. Width 12.4 % (11.5-14.5); White Blood Cell Count 7.9 10^3/uL (4.8-10.8)
[2023-08-20 04:48] LABS: Blood Urea Nitrogen 36 mg/dl (9-20); Calcium 9.2 mg/dl (8.4-10.2); Carbon Dioxide 28 mmol/L (22-30); Chloride 102 mmol/L (98-107); Estimated Creatinine Clearance 70 ml/min; Glucose 118 mg/dl (70-99); Magnesium 2.2 mg/dl (1.6-2.3); Sodium 135 mmol/L (135-145); eGFR > 60.00
--- NOTE | 2023-08-20 05:22 | W.PN.CT ---
Addendum entered and electronically signed by Obi Berman MD 08/20/23 08:59:
I saw and examined the patient.
The PA's note was reviewed and I agree with the note.
Comment:
POD#2 s/p CABG x 4
No major overnight events. AVSS. Sinus. RA. No gtts. 2M: 80 overnight. UO: spontaneous. Tolerating PO.
- ASA/plavix, amlodipine (RA), hold BB, amio, lipitor
- D/C mediastinal CTs
- Trend PLTs
- OOB/IS/ambulate
Original Note:
Today's Communication / Plan
-
-No events overnight
-UOP 335/550 in 12/24 hrs. Diuresis held yesterday. Cr 1->1.1 today
-Current meds (ASA, Lipitor, Amiodarone, Lopressor; Plavix, on Norvasc for radial harvest)
-Monitor chest tube output: 2med 85/190 in 12/24 hrs
-Telles remains in situ 2/2 prostatectomy with urinary incontinence. Flomax started.
-Maintain cordis
-Maintain temporary pacer wires (plan to cut before d/c home)
-IS/OOB/ambulate
Assessment / Plan
-
Assessment:
-S/p CABG x 4 (In situ GARCIA to LAD, Ao to radial to OM1 sequential to OM 2, Ao to RSVG to RPDA)/Radial and R vein harvest, by Dr. Dalal, 08/18/23, pod#2
-History of previous myocardial infarction
-Multivessel CAD
-hx [place] S/P PCI with ARLETH to RCA and LCx,
-LVEF 60% per intraop JAYCE
-Obstructive sleep apnea (uses CPAP machine)
-History of prostate cancer status post prostatectomy 2012
-Urinary incontinence
-Hypercholesteremia
-Hypertension
-Prediabetes (A1C 6.0)
-Depression
-S/p Incisional hernia repair/sling surgery, 12/2018
-S/P Colon polypectomies
-S/P Achilles tendon repair, 1990
-S/p Appendectomy
-Acute postop blood loss/Anemia (stable without transfusion)
-Acute postop thrombocytopenia (no active bleed)
-Acute postop atelectasis
-Acute postop hypovolemia with subsequent hypervolemia
Subjective
Procedure
S/p CABG x 4 (In situ GARCIA to LAD, Ao to radial to OM1 sequential to OM 2, Ao to RSVG to RPDA)/Radial and R vein harvest, by Dr. Dalal
-
Date of Service: August 20, 2023
No overnight events. A line out. Plavix started. Sternal pain improved with meds and removal of pleural CT.
Objective Data
-
Lab Results
08/20/23 04:17
08/20/23 04:17
PT 18.6 Sec (11.4-14.6) H 08/18/23 12:30
INR 1.57 08/18/23 12:30
APTT 30.1 Sec (23.4-35.0) 08/18/23 12:30
Vital Signs
Vital Signs
Temp Pulse Resp BP Pulse Ox
98.0 F 80 14 98/67 96
08/20/23 04:00 08/20/23 04:10 08/20/23 04:00 08/20/23 04:10 08/20/23 04:10
CT Intake/Output/Weight
08/19/23 08/19/23 08/20/23
06:59 18:59 06:59
Intake Total 625.7 / 1466.2 107.7 / 207.7 100 / 207.7
Output Total 760 / 1815 320 / 740 420 / 740
Balance -134.3 / -348.8 -212.3 / -532.3 -320 / -532.3
SaO2: 96
Physical Exam
-
General: Awake, Oriented and AOx3
Cardiovascular: Regular rate & rhythm and Rub
Respiratory: Decreased Breath Sounds
Sternum: Stable
Incision: Clean, Dry and Intact
Extremities: No Edema
Data Reviewed
-
Lab Results: Results Reviewed
Medications: Active Meds Reviewed
Chest X-Ray: Report Reviewed
ECG: Report Reviewed
[2023-08-20 05:39] LABS: Mean Platelet Volume 10.7 fL (7.4-10.4); Platelet Count 82 10^3/uL (130-400)
[2023-08-20] MEDS: ROXICODONE 5 MG PO (06:30)
[2023-08-20] MEDS: TYLENOL 1000 MG PO ×3 (06:31→21:23)
[2023-08-20 07:19] LABS: Glucose - Point of Care 132 mg/dl (70-99)
[2023-08-20] MEDS: NOVOLOG FLEXPEN-MODERATE RESISTANCE SC (07:21)
--- NOTE | 2023-08-20 07:45 | PTCARENOTE ---
pt received from previous RN, oriented, OOB in chair. SR on the monitor, HR 70-80s. V wire in place, pacer box off. SBP 90s. palpable pulses. trace LUE edema. pt on RA, 91-92% POX. lungs diminished. IS encouraged, 1000ml. CT x2, no air leak or
crepitus noted. pt abdomen s/n, denies n/v. +BS, +flatus. diet tolerated. DTV post Telles removal. sternal incision approximated. chest tube site c/d/i. R groin MELINDA, RLE incision MELINDA, approximated, +ecchymosis. LUE incision MELINDA, +ecchymosis. RIJ
cordis maintained. PIV. see worklist for VS, I&O, and assessment.
[2023-08-20] MEDS: SENOKOT-S 1 TABLET PO ×2 (08:15→19:21)
[2023-08-20] MEDS: LOW STRENGTH ASPIRIN 81 MG PO (08:15)
[2023-08-20] MEDS: NEURONTIN 100 MG PO ×2 (08:15→19:21)
[2023-08-20] MEDS: BACTROBAN 2% OINTMENT 1 APPLIC NASAL ×2 (08:15→19:22)
[2023-08-20] MEDS: PACERONE 200 MG PO ×3 (08:15→21:24)
[2023-08-20] MEDS: PROTONIX 40 MG PO (08:15)
[2023-08-20] MEDS: PLAVIX 75 MG PO (08:15)
[2023-08-20] MEDS: LOPRESSOR 12.5 MG PO ×2 (08:15→19:21)
[2023-08-20] MEDS: FLOMAX 0.400000000000000022 MG PO (08:15)
--- NOTE | 2023-08-20 10:35 | PTCARENOTE ---
pt ambulated in hallway w/ 2 person assist, tolerated well. pt placed back to bed, Med CTx2 dc'd as ordered, dressing c/d/i.
[2023-08-20] MEDS: NOVOLOG FLEXPEN-MODERATE RESISTANCE 1 UNITS SC ×2 (11:48→17:07)
[2023-08-20 11:49] LABS: Glucose - Point of Care 172 mg/dl (70-99)
--- NOTE | 2023-08-20 12:30 | PTCARENOTE ---
pt VSS, no changes in assessment. OOB in chair for lunch. IS encouraged. V wire insulated.
[2023-08-20] MEDS: NSS IV (12:40)
--- NOTE | 2023-08-20 14:15 | PTCARENOTE ---
Assumed care of patient. Walking rounds completed with previous RN. Pt assessed while he was sitting in the chair. Pt alert and oriented x4. states he is tired. PADILLA with equal strength throughout. Bladder scanned for 114mL. standby assist to stand
and ambulate to the bathroom with the walker. Pt incontinent of urine, with pad saturated. Voided an additional 50mL of jairo urine in the urinal. Assisted back to bed. NSR on tele with rates in the 80s. BP stable 113/66. Right radial, left ulnar,
bilateral DP pulses palpable. Left arm with +1 edema. Epicardial v-wire insulated. POX 94% on RA. Lungs diminished in the bases. IS encouraged-750mL achieved. Abdomen soft, round, nontender. +BS. Sternal incision approximated and MELINDA. Right groin
puncture site approximated, MEDICAL RECORD ASSISTANT. Right SVG harvest site approximated, and MELINDA. Old chest tube sites covered with dressing CDI. Left radial graft site approximated and ecchymotic. Right IJ cordis intact infusing NSS KVO. Right hand 18g PIV intact.
See MAR for medication administration. See worklist for complete nursing assessment. Plan of care reviewed and pt in agreement.
[2023-08-20] MEDS: NORVASC 2.5 MG PO (14:18)
--- NOTE | 2023-08-20 16:30 | PTCARENOTE ---
Pt reassessed. VSS. NSR with rats in the 80s. BP stable 108/66. POX 96% on RA. Surgical sites stable. No acute changes from previous assessment.
[2023-08-20 17:09] LABS: Glucose - Point of Care 169 mg/dl (70-99)
--- NOTE | 2023-08-20 20:00 | PTCARENOTE ---
assumed care of patient @ 1900. received pt sitting in chair, AOX3. Pt assisted to bathroom and then took walk in hallway - down to waiting room and back up. VSS on RA. NSR on monitor, +pedals, + R radial, + L ulnar. +1 edema in LUE. V wire
insulated. Lungs clear on room air. IS 1500, states breathing much improved since chest tube d/c. +BM. Incontinent of urine, pt has own pads. All surgical incisions CDI. R IJ cordis with kvo patent. pt now resting comfortably in bed, no change in
assessment.
[2023-08-20] MEDS: LIPITOR 80 MG PO (21:23)
[2023-08-20] MEDS: LEXAPRO 10 MG PO (21:24)
[2023-08-20 23:40] LABS: Glucose - Point of Care 125 mg/dl (70-99)
[2023-08-21] VITALS (7 sets, daily range): BP systolic 110–158; BP diastolic 66–87; PULSE 87; O2SAT 97; BMI 26.5
--- NOTE | 2023-08-21 | PTCARENOTE ---
pt resting comfortably, no change in assessment
--- NOTE | 2023-08-21 04:00 | PTCARENOTE ---
labs drawn and sent, pt resting comfortably, no change in assessment
[2023-08-21] MEDS: ROXICODONE 2.5 MG PO (04:29)
[2023-08-21 04:34] LABS: Hematocrit 25.9 % (39.0-52.0); Hemoglobin 8.8 g/dL (13.0-18.0); Mean Corpuscular Hgb 32.4 pg (27.0-31.0); Mean Corpuscular Volume 95.2 fL (80.0-94.0); Mean Platelet Volume 10.6 fL (7.4-10.4); Platelet Count 95 10^3/uL (130-400); Red Blood Cell Count 2.72 10^6/uL (4.70-6.10); Red Cell Dist. Width 12.4 % (11.5-14.5); White Blood Cell Count 7.7 10^3/uL (4.8-10.8)
[2023-08-21 05:01] LABS: Blood Urea Nitrogen 27 mg/dl (9-20); Calcium 8.6 mg/dl (8.4-10.2); Carbon Dioxide 27 mmol/L (22-30); Chloride 102 mmol/L (98-107); Estimated Creatinine Clearance 85 ml/min; Glucose 110 mg/dl (70-99); Potassium 3.9 mmol/L (3.5-5.1); Sodium 134 mmol/L (135-145); eGFR > 60.00
--- NOTE | 2023-08-21 05:16 | W.PN.CT ---
Today's Communication / Plan
-
-No events overnight
-No diuresis yesterday, voiding appropriate, creatinine 1.1->0.9
-Platelets 82->95 today
-Current meds (ASA/Plavix, atorvastatin, Amiodarone, Lopressor, Norvasc for radial harvest, PPI, Lexapro, gabapentin)
-CTs out
-Telles now removed, voiding appropriately. Continued on Flomax.
-Maintain cordis
-Maintain temporary pacer wires (plan to cut before d/c home)
-IS/OOB/ambulate
Assessment / Plan
-
Assessment:
-S/p CABG x 4 (In situ GARCIA to LAD, Ao to radial to OM1 sequential to OM 2, Ao to RSVG to RPDA)/Radial and R vein harvest, by Dr. Dalal, 08/18/23, pod#3
-History of previous myocardial infarction
-Multivessel CAD
-hx [place] S/P PCI with ARLETH to RCA and LCx,
-LVEF 60% per intraop JAYCE
-Obstructive sleep apnea (uses CPAP machine)
-History of prostate cancer status post prostatectomy 2012
-Urinary incontinence
-Hypercholesteremia
-Hypertension
-Prediabetes (A1C 6.0)
-Depression
-S/p Incisional hernia repair/sling surgery, 12/2018
-S/P Colon polypectomies
-S/P Achilles tendon repair, 1990
-S/p Appendectomy
-Acute postop blood loss/Anemia (stable without transfusion)
-Acute postop thrombocytopenia (no active bleed)
-Acute postop atelectasis
-Acute postop hypovolemia with subsequent hypervolemia
Subjective
Procedure
S/p CABG x 4 (In situ GARCIA to LAD, Ao to radial to OM1 sequential to OM 2, Ao to RSVG to RPDA)/Radial and R vein harvest, by Dr. Dalal
-
Date of Service: August 21, 2023
No overnight events. Reports pain has drastically improved with CT removal. Was able to ambulate in hallway yesterday.
Objective Data
-
Lab Results
08/21/23 04:25
08/21/23 04:25
PT 18.6 Sec (11.4-14.6) H 08/18/23 12:30
INR 1.57 08/18/23 12:30
APTT 30.1 Sec (23.4-35.0) 08/18/23 12:30
Vital Signs
Vital Signs
Temp Pulse Resp BP Pulse Ox
98.2 F 82 16 112/72 93
08/21/23 04:00 08/21/23 04:30 08/21/23 04:00 08/21/23 04:26 08/21/23 04:00
CT Intake/Output/Weight
08/20/23 08/20/23 08/21/23
06:59 18:59 06:59
Intake Total 100 / 207.7 570 / 1140 570 / 1140
Output Total 420 / 740 60 / 210 150 / 210
Balance -320 / -532.3 510 / 930 420 / 930
SaO2: 93
Physical Exam
-
General: Awake, Oriented and AOx3
Cardiovascular: Regular rate & rhythm, No Murmurs and No Rub
Respiratory: Clear and Equal
Sternum: Stable
Incision: Clean, Dry and Intact
Extremities: No Edema
Data Reviewed
-
Lab Results: Results Reviewed
Medications: Active Meds Reviewed
Chest X-Ray: Report Reviewed
ECG: Report Reviewed
[2023-08-21] MEDS: TYLENOL 1000 MG PO ×2 (06:28→14:31)
[2023-08-21 07:11] LABS: Glucose - Point of Care 127 mg/dl (70-99)
[2023-08-21] MEDS: NOVOLOG FLEXPEN-MODERATE RESISTANCE SC ×2 (07:23→12:25)
[2023-08-21] MEDS: NEURONTIN 100 MG PO (08:14)
[2023-08-21] MEDS: BACTROBAN 2% OINTMENT 1 APPLIC NASAL (08:14)
[2023-08-21] MEDS: FLOMAX 0.400000000000000022 MG PO (08:14)
[2023-08-21] MEDS: TOPROL XL 50 MG PO (08:15)
[2023-08-21] MEDS: SENOKOT-S 1 TABLET PO (08:15)
[2023-08-21] MEDS: PROTONIX 40 MG PO (08:15)
[2023-08-21] MEDS: LASIX 20 MG PO (08:16)
[2023-08-21] MEDS: NORVASC 2.5 MG PO (08:16)
[2023-08-21] MEDS: PLAVIX 75 MG PO (08:16)
[2023-08-21] MEDS: PACERONE 200 MG PO (08:16)
[2023-08-21] MEDS: LOW STRENGTH ASPIRIN 81 MG PO (08:16)
[2023-08-21] MEDS: KCL 20 MEQ PO (08:22)
--- NOTE | 2023-08-21 08:34 | PTCARENOTE ---
"Patient received from night guard resting comfortably oob in chair, AAO X 3, states pain controlled at this time. NSR via cm, SaO2 @ 94% on RA. RIJ Cordis w/kvo infusing. Epicardial V-wire insulated to chest wall. All procedural sites stable. "Joanne"Katlin and team to bedside for am rounds. Patient updated to plan of care for the day, including possible d/c home later, in agreement. See work list for full assessment and interventions performed. "
--- NOTE | 2023-08-21 08:58 | W.PN.CARDCBS ---
Today's Communication / Plan
-
He continues to do well and remains hemodynamically stable.
Continue post op care
Remains in sinus.
Remains on Beta michael, amlodipine, amiodarone, Lipitor and DAPT with ASA and Plavix.
( Prior to admission was on asa, lipitor 80mg QPM, toprol 25mg HS, xarelto 2.5mg BID apparently for hx CAD after poorly tolerating Brilinta)
He may to transfer to [place] [facility] at discharge.
Discussed with CT surgery nursing.
Impression / Plan
-
.
Primary Butadiene Converter Helper: Dr. Beltran Aldrich
Impression:
Status post CABG x 4 In situ GARCIA to LAD, Ao to radial to OM1 sequential to OM 2, Ao to RSVG to RPDA 08/18/23
CAD with prior [place] with ARLETH to RCA and LCx 2017, recent progression of multivessel CAD by cath 07/24/2023
HTN
HLD
Prostate cancer s/p prostatectomy 2012
JESSE on CPAP
depression
ECHO 08/01/23: preserved EF, normal valves, trace MR
Plan:
-Patient of Dr. Aldrich underwent CABG x 4 In situ GARCIA to LAD, Ao to radial to OM1 sequential to OM 2, Ao to RSVG to RPDA 08/18/23
He continues to do well and remains hemodynamically stable.
Continue post op care
Remains in sinus.
Remains on Beta michael, amlodipine, amiodarone, Lipitor and DAPT with ASA and Plavix.
( Prior to admission was on asa, lipitor 80mg QPM, toprol 25mg HS, xarelto 2.5mg BID apparently for hx CAD after poorly tolerating Brilinta)
He may to transfer to [place] [facility] at discharge.
Discussed with CT surgery nursing.
Progress Note - Butadiene Converter Helper
Subjective
Date of Service: August 21, 2023
Pt seen and examined. No complaints. No chest pain or shortness of breath.
Objective
Labs:
08/21/23 04:25
08/21/23 04:25
Labs
Hgb 8.8 g/dL (13.0-18.0) L 08/21/23 04:25
Hct 25.9 % (39.0-52.0) L 08/21/23 04:25
Plt Count 95 10^3/uL (130-400) L 08/21/23 04:25
PT 18.6 Sec (11.4-14.6) H 08/18/23 12:30
INR 1.57 08/18/23 12:30
APTT 30.1 Sec (23.4-35.0) 08/18/23 12:30
Sodium 134 mmol/L (135-145) L 08/21/23 04:25
Potassium 3.9 mmol/L (3.5-5.1) 08/21/23 04:25
BUN 27 mg/dl (9-20) H 08/21/23 04:25
Creatinine 0.9 mg/dL (0.7-1.3) 08/21/23 04:25
Glucose 110 mg/dl (70-99) H 08/21/23 04:25
Vital Signs and I&O:
Vital Signs
Temp Pulse Resp BP Pulse Ox
99.2 F 90 15 130/70 94
08/21/23 07:55 08/21/23 08:16 08/21/23 07:55 08/21/23 08:16 08/21/23 08:31
Vital Signs
Temp Pulse Resp BP Pulse Ox
99.2 F 90 15 130/70 94
08/21/23 07:55 08/21/23 08:16 08/21/23 07:55 08/21/23 08:16 08/21/23 08:31
Intake & Output
08/19/23 08/20/23 08/21/23 08/22/23
06:59 06:59 06:59 06:59
Intake Total 1466.2 / 1466.2 207.7 / 207.7 1140 / 1140 270 / 270
Output Total 1815 / 1815 740 / 740 210 / 210
Balance -348.8 / -348.8 -532.3 / -532.3 930 / 930 270 / 270
Physical Exam
Physical Exam
General: No acute distress, AAOX3
Neck: Negative JVD
Heart: Regular, Negative S3 positive S1/S2, Negative S4, No murmur
Lungs: CTA b/l, negative wheezes/rales/rhonchi
Abd: Positive BS, NT/ND, neg rebound/rigidity/guarding
Ext: Negative cyanosis/clubbing/edema
Neuro: nonfocal
--- NOTE | 2023-08-21 11:14 | CM ---
Chart reviewed. Patient is independent of ADLS, lives with his in a 2 STH, 1 YE, 0 DME. Plans is for the patient to return home with CT Transitional RN. CM to follow
[2023-08-21] MEDS: NSS IV (11:36)
--- NOTE | 2023-08-21 11:48 | W.DCSUMMARY ---
Discharge Summary
Discharge Data
Date of Admission: 08/18/23
Date of Discharge: 08/21/23
Total time spent discharging patient (in min): 33
-
Pending Results: No
Hospital Course
Primary care physician:
Dr. Velma Flores
Outpatient machine shop helper:
Dr. Beltran Aldrich
Inpatient consultants:
DCA, carpet installer helper
Procedures:
1. Coronary artery bypass grafting x 4 (In situ GARCIA to LAD, Ao to radial to OM1 sequential to OM 2, Ao to RSVG to RPDA)
Primary Diagnosis:
1. Multivessel Coronary Artery Disease with proximal LAD involvement, symptomatic
Secondary Diagnoses:
1. History of previous myocardial infarction
2. Obstructive sleep apnea
3. History of prostate cancer status post multiple surgeries
4. Hyperlipidemia
5. Hypertension
6. Depression/anxiety
HPI:
67-year-old male with progressive shortness of breath found to have progressive coronary artery stenosis on his repeat left heart cath presented electively on 08/17 for a coronary artery bypass surgery with Dr. Dalal.
Hospital course: Patient was electively admitted on 08/17 for a CABG with Dr. Dalal. He returned to the CVICU on nitroglycerin, Levophed, insulin, and Precedex infusions. Nitroglycerin was weaned off and Norvasc was started for the left radial
harvest. Patient was weaned off Precedex and extubated by 1700. He remained on Levophed infusions until postop day 1. On 08/18 postop day #1, A-line, and slick were discontinued. Insulin drip was turned off and patient was made telemetry status.
Due to the patient's prior prostate surgeries patient was started on Flomax and the Telles remained until postop day 2. He was started on Plavix and left pleural chest tube was discontinued. Toradol was started for pain. On 08/19 postop day #2 Telles
was discontinued. Gabapentin was decreased to twice daily and Toradol was discontinued due to platelets trending down. On 08/20 postop day #3 patient's platelets were improving from 82 to 95. He was given 20mg of PO lasix. Patient's metoprolol was
changed to metoprolol XL 50 mg daily. Patient showed tolerance and was deemed stable for discharge.
Home medication changes:
See below
Discharge Plan
-
Patient Disposition: Home (Routine Discharge)
Discharge Diagnosis/Procedures: CABG x 4
Condition: Good
Diet: Low Cholesterol and Low Sodium
Activity: No strenuous activity
Driving Restrictions: Not until seen by your Dr
Bathing Restrictions: OK to Shower
Other Services: Cardiac Rehab
Specialty Instructions: Weigh Daily- Call MD for wt gain/loss 3 lbs overnight/5 lbs in 1 week
Activity Restrictions/Additional Instructions:
Please call [facility] to schedule your first visit at [phone]
ACTIVITY:
-No strenuous activity: no heavy lifting, pushing, pulling anything over 15 pounds for one month
-continue to use stairs as tolerated
DRIVING RESTRICTIONS:
-No driving for one month or until approved by your surgeon
WOUND CARE:
-Shower daily. Use soap & water.
-No lotions, creams or powders on incision area.
DIET:
-continue a low fat/low cholesterol diet.
-IF you are diabetic, continue carb controlled diet.
CARDIAC REHAB:
-Please make appointment to start in 5-6 weeks with your local hospital program. (See Cardiac Rehabilitation Discharge Booklet).
SPECIALTY INSTRUCTIONS:
-Weigh yourself daily. Call your physician for any weight gain/loss of 3 lbs overnight or 5 lbs in one week.
-REPORT any clicking noise or uneven appearance of your sternum to your surgeon immediately.
-If you smoke, you are instructed to quit. The [place] smoking hotline phone number is [phone]
Referrals:
CT Transitional Care Nurse [Outside] (The Cardiothoracic Transitional Care Nurse will call you to set up a visit in 1-2 days.)
Velma Flores MD [Family Provider] -
Beltran Aldrich MD [Non-Admitting Privileges] - 10/02/23 4:45 pm
Randal Dalal MD [Active] - 09/20/23 1:00 pm
Prescriptions:
New
amlodipine 2.5 mg Tablet
2.5 mg PO DAILY Qty: 90 3RF
clopidogrel 75 mg Tablet
75 mg PO DAILY Qty: 30 0RF
pantoprazole 40 mg Tablet,Delayed Release (Dr/Ec)
40 mg PO DAILY Qty: 30 1RF
cyclobenzaprine 10 mg Tablet
5 mg PO Q8HPRN PRN (Reason: muscle spasm) Qty: 10 0RF
metoprolol succinate 50 mg Tablet Extended Release 24 Hr
50 mg PO DAILY Qty: 60 0RF
gabapentin 100 mg Capsule
100 mg PO BID Qty: 30 0RF
oxycodone 5 mg Tablet
2.5 mg PO Q6HPRN PRN (Reason: severe pain) Qty: 10 0RF
acetaminophen 325 mg Tablet
650 mg PO Q6HPRN PRN (Reason: mild pain,headache,temp >101F ) Qty: 0 0RF
Continued
atorvastatin 80 mg Tablet
80 mg PO HS
aspirin [Aspir-81] 81 mg Tablet,Delayed Release (Dr/Ec)
81 mg PO DAILY
montelukast [Singulair] 10 mg Tablet
10 mg PO HS
escitalopram oxalate [Lexapro] 10 mg Tablet
10 mg PO HS
Discontinued
nitroglycerin 0.4 mg Tablet, Sublingual
0.4 mg SUBLINGUAL Q5-15M PRN (Reason: chest pain)
metoprolol succinate 25 mg Tablet Extended Release 24 Hr
25 mg PO HS
Xarelto 2.5 mg Tablet
2.5 mg PO BID
Care Plan Goals
Care Plan Goals:
Problem: Readiness for enhanced knowledge related to diagnosis and treatment plan
Goal: Understand your diagnosis and treatment plan needs, including medications if applicable.
Instructions: Know your diagnosis, underlying causes and treatment plan options, including medications if applicable. Consult with your health care team to learn about your diagnosis and treatment plan, including medications if applicable.
Discharge Date and Time
Print Language: DIVEHI
--- NOTE | 2023-08-21 12:14 | PTCARENOTE ---
VS obtained, assessment unchanged. Patient resting comfortably, ordering lunch.
[2023-08-21 12:25] LABS: Glucose - Point of Care 106 mg/dl (70-99)
--- NOTE | 2023-08-21 16:00 | PTCARENOTE ---
Epicardial wire d/c'd by VINICIUS Mendez w/this RN assist, patient tolerated well. PIV removed. Patient set up to shower, completed independently. Discharge instructions thoroughly reviewed w/patient and spouse, all questions answered. Patient and all
belongings transported to waiting vehicle for d/c home.
[2023-08-21 19:00] LABS: Hepatitis C Antibody Negative (Negative)
== END 2023-08-21 16:00 | disposition home or self-care (01) | DRG 236 ==
LOC: CVICU 04:59
PROVIDERS: Nurse Practitioner; ADMITTING PHYSICIAN Thoracic Surgery (Cardiothoracic Vascular Surgery); CONSULT PHYSICIAN Internal Medicine Critical Care Medicine; FAMILY PHYSICIAN Family Medicine; OTHER PHYSICIAN Internal Medicine Cardiovascular Disease
PROC: 5A1221Z Performance of Cardiac Output, Continuous (ICD-10-PCS; 2023-08-18)
PROC: 02L70CK Occlusion of Left Atrial Appendage with Extraluminal Device, Open Approach (ICD-10-PCS; 2023-08-18)
PROC: 03BC4ZZ Excision of Left Radial Artery, Percutaneous Endoscopic Approach (ICD-10-PCS; 2023-08-18)
PROC: B24BZZ4 Ultrasonography of Heart with Aorta, Transesophageal (ICD-10-PCS; 2023-08-18)
PROC: 021209W Bypass Coronary Artery, Three Arteries from Aorta with Autologous Venous Tissue, Open Approach (ICD-10-PCS; 2023-08-18)
PROC: 06BP4ZZ Excision of Right Saphenous Vein, Percutaneous Endoscopic Approach (ICD-10-PCS; 2023-08-18)
PROC: 02100Z9 Bypass Coronary Artery, One Artery from Left Internal Mammary, Open Approach (ICD-10-PCS; 2023-08-18)
PROC: 0BH17EZ Insertion of Endotracheal Airway into Trachea, Via Natural or Artificial Opening (ICD-10-PCS; 2023-08-18)
DX: I25.10 Atherosclerotic heart disease of native coronary artery without angina pectoris (principal); D62 Acute posthemorrhagic anemia; J98.11 Atelectasis; G47.33 Obstructive sleep apnea (adult) (pediatric); E78.00 Pure hypercholesterolemia, unspecified; I10 Essential (primary) hypertension; F32.A Depression, unspecified; Z79.01 Long term (current) use of anticoagulants; I25.2 Old myocardial infarction; Z79.82 Long term (current) use of aspirin; D69.6 Thrombocytopenia, unspecified
CPT/HCPCS: 36415; 71045; 71250; 80048; 80053; 81003; 81015; 82248; 82330; 82565; 82805; 82947; 82962; 83036; 83735; 84132; 84302; 84520; 85014; 85018; 85025; 85027; 85049; 85610; 85730; 86803; 86850; 86900; 86901; 86920; 87070; 93005; 93312; 93320; 93325; 94002; P9045; P9047

== ENCOUNTER → 2023-09-04 13:21 | Outpatient (REF) | payer MEDICARE, SELFPAY ==
[2023-09-04 14:35] LABS: Urine Albumin Trace (Neg - Trace); Urine Bilirubin Negative (Negative); Urine Character Clear (Clear); Urine Color Yellow; Urine Glucose Negative (Negative); Urine Ketone Negative (Negative); Urine Leukocyte Trace (Negative); Urine Nitrite Positive (Negative); Urine Occult Blood 4+ (Negative); Urine Urobilinogen Negative (Neg - 1+)
[2023-09-04 14:46] LABS: Urine Bacteria Few (Negative); Urine Red Blood Cell 30-40 /HPF (0-2)
== END ==
LOC: RAD 13:21
PROVIDERS: ATTENDING PHYSICIAN Nurse Practitioner Acute Care; FAMILY PHYSICIAN Family Medicine
DX: Z95.1 Presence of aortocoronary bypass graft (principal)
CPT/HCPCS: 76882; 81003; 81015; 87077; 87086; 87186